=== PATIENT | male | born 1970 | race African-American/Black ===

== ENCOUNTER 2020-12-31 14:40 | Emergency (ER) | payer OTHER, SELFPAY ==
[2020-12-31] VITALS (39 sets, daily range): BP systolic 119–157; BP diastolic 63–92; PULSE 72–106; RESP 14–28; TEMP 36.6–37.6; O2SAT 99–100
--- NOTE | ~2020-12-31 | CT_ITS ---
EXAMINATION: CT brain wo con INDICATION: Transient alteration of awareness COMPARISON: None TECHNIQUE: Standard unenhanced head CT. The dose-length product (DLP) was 605.33 mGy-cm. The mA was a djusted according to patient size. Iterative reconstruction technique was employed. FINDINGS: There is no intracranial hemorrhage, acute infarction, or abnormal mass lesion. The ventric les are normal. There is no abnormal mass effect or midline shift. The altman-white matter differentiat ion is normal. The basal cisterns are patent. The orbits are normal. There is mild mucosal thickening of the paranasal sinuses. IMPRESSION: 1. No acute intracranial abnormality. Reviewed, dictated and finalized at location A.
--- NOTE | ~2020-12-31 | XR_ITS ---
XR chest 1V portable DATE: 12/31/2020 15:32 INDICATION: Seizures x2 today TECHNIQUE: Portable upright AP chest on 12/31/2020 at 1528 hours COMPARISON: None FINDINGS: Normal heart size. No hilar or mediastinal enlargement. No pulmonary infiltrate or consolid ation, pleural effusion or pulmonary vascular congestion or pneumothorax. IMPRESSION: No active cardiopulmonary disease Reviewed, dictated and finalized at location A.
--- NOTE | 2020-12-31 14:56 | ECG_ITS ---
Measurements Intervals [place] Rate: 86 P: 49 ID: [id number] QRS: 19 QRSD: 88 T: 20 QT: 367 QTc: 439 Interpretive Statements SINUS RHYTHM BASELINE ARTIFACT- I, II, AVR, AVL, AVF, V1 NORMAL ECG Electronically Signed On 12-31-2020 16:12:46 CDT by Wilmer Anderson D.O.
[2020-12-31] MEDS: levETIRAcetam 1000MG/NACL100ML 1,000 MG/100 ML BAG 400 MG IVPB (15:23)
--- NOTE | 2020-12-31 15:25 | PC.NURSE ---
pt off floor to radiology.
[2020-12-31 15:36] LABS: Basophils Percent Auto 0.4 % (0.2-1.2); Eosinophils Percent Auto 0.2 % (0-4.4); Hematocrit 39.4 % (42.0-52.0); Hemoglobin 13.5 g/dL (14.0-18.0); Immature Granulocyte Absolute 0.01 K/mm3 (0.00-0.031); Immature Granulocyte Percent A 0.2 % (0-0.5); Immature Platelet Fraction Pct 14.4 % (0.9-11.2); Lymphocytes Absolute Auto 0.58 K/mm3 (0.9-3.2); Lymphocytes Percent Auto 12.7 % (18.3-44.2); Mean Corpuscular HGB Conc 34.3 g/dl (32-36); Mean Corpuscular Hemoglobin 32.8 pg (26-34); Mean Corpuscular Volume 95.6 fl (80-100); Mean Platelet Volume 11.3 fl (7.4-10.4); Monocytes Absolute Auto 0.4 K/mm3 (0.1-0.6); Monocytes Percent Auto 9.6 % (2.6-8.5); Neutrophils Absolute Auto 3.5 K/mm3 (1.3-6.7); Neutrophils Percent Auto 76.9 % (45.5-73.1); Platelet Count Result 87 k/mm3 (150-375); Red Blood Count 4.12 M/mm3 (4.6-6.20); Red Cell Distribution Width 14.2 % (11.5-14.5); White Blood Count 4.6 K/mm3 (4.5-10.0)
[2020-12-31 15:43] LABS: Alanine Aminotransferase 105 U/L (4-50); Albumin Level 4.7 g/dL (3.5-5.1); Alkaline Phosphatase 102 U/L (38-126); Anion Gap 16 mmol/L (8-16); Aspartate Amino Transferase 153 U/L (17-59); Bilirubin,Total 1.5 mg/dL (0.2-1.3); Blood Urea Nitrogen 3 mg/dL (9-20); Calcium 9.3 mg/dL (8.4-10.2); Carbon Dioxide 17 mmol/L (22-30); Chloride 102 mmol/L (98-107); Estimated CRCL calculation 100 ml/min; Estimated Glomerular Filt Rate > 60; Glucose 99 mg/dL (65-110); Potassium 3.8 mmol/L (3.4-5.0); Sodium 135 mmol/L (137-145)
[2020-12-31 16:47] LABS: Add Urine Microscopic? YES; Appearance Urine Clear (Clear); Bacteria Urine Trace /hpf; Bilirubin Urine Negative (Negative); Blood Urine 2+ (Negative); Color Urine Yellow (Yellow); Glucose Urine UA Negative (Negative); Ketones Urine 1+ mg/dL (Negative); Leukocyte Esterase Ur Negative LEU/UL (Negative); Mucus Urine Rare /lpf; Nitrate Urine Negative (Negative); Protein Urine 2+ mg/dL (Negative); RBC Urine 0-2 /hpf (0-2); Specific Grav Ur 1.013 (1.001-1.035); Squamous Epithelial Cell Urine Rare /hpf (Few); Urobilinogen Urine Negative mg/dL (<2.0); WBC Urine 0-3 /hpf
[2020-12-31 16:58] LABS: Amphetamine Screen Urine Negative (Negative); Barbiturate Screen Urine Negative (Negative); Benzodiazepines Screen Urine Negative (Negative); Cannabinoid Screen Urine Negative (Negative); Cocaine Screen Urine Negative (Negative); Methadone Screen Urine Negative (Negative); Opiate Screen Urine Negative (Negative); Phencyclidine Screen Urine Negative (Negative)
--- NOTE | 2020-12-31 16:59 | ED.SEIZURE ---
HPI - Seizure General Chief Complaint: Seizure <Queta Mathis MD - Last Filed: 12/31/20 17:40> Stated Complaint: SEIZURE <Queta Mathis MD - Last Filed: 12/31/20 17:40> Time Seen by Provider: 12/31/20 14:52 <Queta Mathis MD - Last Filed: 12/31/20 17:40> Source: patient, EMS and RN notes reviewed <Queta Mathis MD - Last Filed: 12/31/20 17:40> Mode of arrival: EMS <Queta Mathis MD - Last Filed: 12/31/20 17:40> Limitations: no limitations <Queta Mathis MD - Last Filed: 12/31/20 17:40> History of Present Illness HPI Narrative: Patient is 50 years old -[place] male brought to the emergency room by ambulance because of witnessed seizure-like activity at work, and warehouse, each 1 lasted about 1 minute, coworkers were able to assist patient to ground, no fall, no trauma. Patient reports having similar symptoms about 4 months ago, went to [facility], was a started on Keppra, ran out of it after 1 week, patient did not have insurance at that time to follow-up with anybody. Patient is healthy otherwise, does not take medicine, currently patient denying any symptoms, no fever, no chills, no headache, no tongue bite or urine incontinence, patient also denies any difficulty breathing or swallowing <Queta Mathis MD - Last Filed: 12/31/20 17:40> Seizure History: Yes <Queta Mathis MD - Last Filed: 12/31/20 17:40> Related Data Allergies/Adverse Reactions: Allergies Allergy/AdvReac Type Severity Reaction Status Date / Time No Known Allergies Allergy Verified 12/31/20 14:52 <Queta Mathis MD - Last Filed: 12/31/20 17:40> Review of Systems Review of Systems: CONSTITUTIONAL: Denies fever, chills, or sweats. EYES: Denies visual changes, redness, or discharge. ENT: Denies rhinorrhea, congestion, sore throat, or otalgia. CARDIOVASCULAR: Denies chest pain, palpitations, or edema. RESPIRATORY: Denies cough or dyspnea. GASTROINTESTINAL: Denies abdominal pain, nausea, vomiting, or diarrhea. GENITOURINARY: Denies dysuria or hematuria. SKIN: Denies rash or itching. MUSCULOSKELETAL: Denies back pain, joint pain, or myalgia. NEUROLOGIC: Denies headache, numbness, or weakness. PSYCHIATRIC: Denies anxiety or depression. <Queta Mathis MD - Last Filed: 12/31/20 17:40> Exam Narrative: General appearance: Well-developed, well-nourished, patient wearing mask, Skin: Normal color Head: Normocephalic, nontraumatic Eyes: Clear conjunctiva ENT: Oropharynx normal, ears normal, nose normal, large edematous homogenous lower lip without any bruises or injury. Dental exam showed no fracture or tenderness, patient tongue within normal limits Neck: Supple, nontender Chest and respiratory: Airway patent, no respiratory distress, no accessory muscle use Heart: Regular rate/rhythm Abdomen: Soft, nontender, no organomegaly, quiet bowel sounds Vascular: Normal peripheral pulses, normal capillary refill. Musculoskeletal: Normal range of motion, nontender back Neurologic: Alert and oriented ?3, [employer] is normal as tested, no gross motor deficit <Queta Mathis MD - Last Filed: 12/31/20 17:40> Course Course Emergency Course: Stable <Queta Mathis MD - Last Filed: 12/31/20 17:40> Improved though not 100% resolved, requesting d/c <Lex Miller MD - Last Filed: 12/31/20 20:21> Vital Signs Vital signs: Vital Signs Temperature 36.6 C 12/31/20 14:48 Pulse Rate 106 H 12/31/20 14:48 Respiratory Rate 21 H 12/31/20 14:48 Blood Pressure 154/88 H 12/31/20 14:48 Pulse Oximetry 99 12/31/20 14:48 Temperature 37.6 C 12/31/20 20:13 Pulse Rate 75 12/31/20 20:13 Respiratory Rate
[2020-12-31] MEDS: diphenhydrAMINE HCl INJ 50 MG/ML VIAL IV PUSH (17:39)
[2020-12-31] MEDS: EPINEPHrine HCL INJ 1 MG/ML AMPUL 0.3 MG IM (17:45)
== END 2020-12-31 20:34 | disposition home or self-care (01) ==
PROVIDERS: Emergency Medicine; Emergency Provider Emergency Medicine
DX: R56.9 Unspecified convulsions (principal); T78.3XXA Angioneurotic edema, initial encounter
CPT/HCPCS: 36415; 70450; 71045; 80053; 80307; 81001; 85025; 85055; 93005; 96365; 96372; 96375; 99284; J0171; J1200; J1953; J2930

== ENCOUNTER 2022-02-04 08:08 | Outpatient (CLI) | payer OTHER, SELFPAY ==
--- NOTE | 2022-02-04 13:40 | WPDNEUROLOGY ---
Neurology EEG Report General Information Date of Study: 02/04/22 TEST eeg DIAGNOSIS Unspecified convulsion CONDITION OF RECORDING drowsy and sleep EEG NUMBER [id number] CLINICAL HISTORY patient reports about a year ago he started having seizures. Has been on medications and it has helped but is having episodes of spacing out. EEG DESCRIPTION Whole record consists of low-voltage 15 to 18 hertz per 2nd beta activity evolving into bilateral symmetrical sleep activity. hyperventilation not done. Photic stimulation produced poor drive. Non paroxysmal. Nonfocal. Nonlateralizing. IMPRESSION no significant abnormalities noted
== END 2022-02-04 08:09 | disposition home or self-care (01) ==
LOC: ANHNEURO 08:10
PROVIDERS: Visit Provider Psychiatry & Neurology Neurology
DX: R56.9 Unspecified convulsions (principal)
CPT/HCPCS: 95816